=== PATIENT | female | born 1975 | race Caucasian/White ===

== ENCOUNTER 2016-10-08 13:07 | Emergency (ER) | payer MEDICAID ==
[~2016-10-08] VITALS: Ht 157.5 cm; Wt 62.0 kg
[~2016-10-08 13:07] MED LIST: CALC600T11 PO; FERR240T9 PO; PREN-39 PO
[2016-10-08 13:10] VITALS: Ht 157.5 cm; Wt 62.0 kg
[2016-10-08] MEDS ORDERED: ACETAMINOPHEN 500 MG TAB PO STA (13:44)
[2016-10-08 14:31] LABS: ADD SCAN DIFF NO
[2016-10-08 14:33] LABS: BASOPHILS % 0.4 % (0.0-2.0); EOSINOPHILS # 0.2 10^3/ul (0.0-0.5); EOSINOPHILS % 3.1 % (0.0-7.0); HEMATOCRIT 37.6 % (37.0-47.0); HEMOGLOBIN 12.8 g/dl (12.0-16.0); LYMPHOCYTES # 1.8 10^3/ul (0.8-2.9); LYMPHOCYTES % 27.6 % (15.0-51.0); MEAN CORPUSCULAR VOLUME 88.3 fl (82.0-101.0); MEAN PLATELET VOLUME 10.8 fl (7.4-10.4); MONOCYTE # 0.4 10^3/ul (0.3-0.9); MONOCYTES % 5.7 % (0.0-11.0); NEUTROPHIL # 4.2 10^3/ul (1.6-7.5); NEUTROPHILS % 63.1 % (39.0-77.0); PLATELET COUNT 198 10^3/UL (140-415); RED BLOOD COUNT 4.26 10^6/ul (4.20-5.40); RED CELL DISTRIBUTION WIDTH 12.4 % (11.5-14.5); WHITE BLOOD COUNT 6.7 10^3/ul (4.8-10.8)
[2016-10-08 14:41] LABS: ADD UMIC NO; UR ASCORBIC ACID NEGATIVE (NEGATIVE); UR BILIRUBIN (Dip) NEGATIVE (NEGATIVE); UR BLOOD (Dip) NEGATIVE (NEGATIVE); UR CLARITY CLEAR (CLEAR); UR COLOR YELLOW (YELLOW); UR GLUCOSE (Dip) NEGATIVE (NEGATIVE); UR KETONES (Dip) NEGATIVE (NEGATIVE); UR LEUKOCYTE ESTERASE (Dip) NEGATIVE Leu/ul (NEGATIVE); UR NITRITE (Dip) NEGATIVE (NEGATIVE); UR SPECIFIC GRAVITY (Dip) 1.023 (1.003-1.030); UR TOTAL PROTEIN (Dip) NEGATIVE (NEGATIVE); UR UROBILINOGEN (Dip) NEGATIVE (NEGATIVE)
--- NOTE | 2016-10-08 15:17 | RADRPT ---
PROCEDURE: US OB. CLINICAL INDICATION: Vaginal bleeding in . TECHNIQUE: Transabdominal and endovaginal imaging of the uterus is available for review COMPARISON: None available FINDINGS: There is a single intrauterine with a mean sac diameter of 0.8 cm, giving an estimated ges tational age of 5 weeks 3 days by ultrasound criteria. No pole real plaque is detected. A la rge subchorionic hemorrhage is identified. The ovaries demonstrate a right ovarian corpus luteum cys t. IMPRESSION: 1. Single intrauterine with an estimated gestational age of 5 weeks 3 days by ultrasound criteria. No pole is identified. This may be secondary to early dates. Repeat pelvic ultraso und is recommended in 1 week. 2. Large subchorionic hemorrhage. RPTAT: HH .Mira Whitman MD, Date Time Electronically viewed and signed by .Mira Whitman MD, on 10/08/2016 15:17 .G/
--- NOTE | 2016-10-08 15:35 | ERD ---
ER Documentation Chief Complaint Date/Time DATE: 10/08/16 TIME: 15:28 Chief Complaint VAG BLEED X 3 DAYS , POSTIVE PREG TEST @ HOME , LMP 09/07/16 HPI This is a 40-year-old female who presents the emergency department today complaining of abdominal pain for the past week. States that 3 days ago she started having some vaginal spotting. States that she took a test today that was positive. States her last menstrual period was September 07, 2016. States that she has used the "shot 'for contraception. States that she does not want this because she "almost " with her last baby 3 years ago because she had preeclampsia. Denies any fevers or chills, diarrhea, vomiting, dysuria states she has not taken any medication for the pain ROS All systems reviewed and are negative except as per history of present illness. Medications Home Meds Active Scripts Acetaminophen* (Tylophen*) 500 Mg Capsule, 1 CAP PO Q6H Y for PAIN AND OR ELEVATED TEMP, #30 CAP Prov:GINNA MANCIA PA-C 10/08/16 Reported Medications Calcium Carbonate* (Calcium Carbonate*) 600 MG Ca Tab, 600 MG PO DAILY, TAB 10/10/13 Ferrous Gluconate (Iron) 1 Tab Tablet, 1 TAB PO DAILY 10/10/13 Vits W-Ca,Fe,Fa(<1MG) ( Vitamins) 1 Tab Tablet, 1 TAB PO DAILY 10/10/13 Allergies Allergies: Coded Allergies: No Known Allergy (Unverified , 10/10/13) PMhx/Soc History of Surgery: No Anesthesia Reaction: No Hx Neurological Disorder: No Hx Respiratory Disorders: No Hx Cardiac Disorders: No Hx Psychiatric Problems: No Hx Miscellaneous Medical Probl: No Hx Alcohol Use: No Hx Substance Use: No Hx Tobacco Use: No Physical Exam Vitals Vital Signs Date Time Temp Pulse Resp B/P Pulse Ox O2 Delivery O2 Flow Rate FiO2 10/08/16 13:10 97.9 88 18 146/88 99 Physical Exam Const: Mild distress Head: Atraumatic Eyes: Normal Conjunctiva ENT: Normal External Ears, Nose and Mouth. Neck: Full range of motion..~ No meningismus. Resp: Clear to auscultation bilaterally Cardio: Regular rate and rhythm, no murmurs Abd: Soft, periumbilical tenderness non distended. Normal bowel sounds Skin: No petechiae or rashes Back: No midline or flank tenderness Ext: No cyanosis, or edema Neur: Awake and alert Psych: Normal Mood and Affect Result Diagram: 10/08/16 1425 Results 24 hrs Laboratory Tests Test 10/08/16 14:23 10/08/16 14:25 Urine Color YELLOW Urine Clarity CLEAR Urine pH 5.0 Urine Specific [place] 1.023 Urine Ketones NEGATIVEmg/dL Urine Nitrite NEGATIVEmg/dL Urine Bilirubin NEGATIVEmg/dL Urine Urobilinogen NEGATIVEmg/dL Urine Leukocyte Esterase NEGATIVELeu/ul Urine Hemoglobin NEGATIVEmg/dL Urine Glucose NEGATIVEmg/dL Urine Total Protein NEGATIVEmg/dl White Blood Count 6.710^3/ul Red Blood Count 4.2610^6/ul Hemoglobin 12.8g/dl Hematocrit 37.6% Mean Corpuscular Volume 88.3fl Mean Corpuscular Hemoglobin 30.0pg Mean Corpuscular Hemoglobin Concent 34.0g/dl Red Cell Distribution Width 12.4% Platelet Count 55094^3/UL Mean Platelet Volume 10.8fl Neutrophils % 63.1% Lymphocytes % 27.6% Monocytes % 5.7% Eosinophils % 3.1% Basophils % 0.4% Nucleated Red Blood Cells % 0.0/100WBC Neutrophils # 4.210^3/ul Lymphocytes # 1.810^3/ul Monocytes # 0.410^3/ul Eosinophils # 0.210^3/ul Basophils # 0.010^3/ul Nucleated Red Blood Cells # 0.010^3/ul Beta HCG, Quantitative 7810.6mIU/ml Current Medications Medications (Trade) Dose Ordered Sig/Katelynn Route PRN Reason Start Time Stop Time Status Last Admin Dose Admin Acetaminophen (Tylenol Tab) 500 mg ONCE STAT PO 10/08/16 13:44 10/08/16 13:45 DC 10/08/16 14:05 DIAGNOSTIC IMAGING REPORT Patient: ZACHARY DELGADO : 1975 Age: 40 Sex: F MR #: [id number] DOS: 10/08/16 1413 Ordering MD: GINNA MANCIA PA-C Location: [facility] Room/Bed: PROCEDURE: US OB. CLINICAL INDICATION: Vaginal bleeding in . TECHNIQUE: Transabdominal and endovaginal imaging of the uterus is available for review COMPARISON: None available FINDINGS: There is a single intrauterine with a mean sac diameter of 0.8 cm, giving an estimated gestational age of 5 weeks 3 days by ultrasound criteria. No pole real plaque is detected. A large subchorionic hemorrhage is identified. The ovaries demonstrate a right ovarian corpus luteum cyst. IMPRESSION: 1. Single intrauterine with an estimated gestational age of 5 weeks 3 days by ultrasound criteria. No pole is identified. This may be secondary to early dates. Repeat pelvic ultrasound is recommended in 1 week. 2. Large subchorionic hemorrhage. RPTAT: HH .Mira Whitman MD, MD Date Time Electronically viewed and signed by .Mira Whitman MD, MD on 10/08/2016 15 :17 .G/ CC: GINNA MANCIA PA-C Procedures/MDM This is a 32-year-old female who presents the emergency department today complaining of abdominal pain for the past week and some vaginal spotting that started 3 days ago. States that she had a positive presence test today. Given this I did repeat our test here in the emergency department Urine test is positive. Given this I did obtain a complete OB workup. This is a 40-year-old female who presents to the emergency department today complaining of abdominal pain and some vaginal spotting given this I did obtain a complete OB workup. Laboratory work shows no elevated white blood cell count. She is not anemic. Platelets are within normal limits. UA is negative for infection Beta quant hCG 7810.6 Rh status O+ Ultrasound shows a single intrauterine with an estimated gestational age of 5 weeks and 3 days by ultrasound criteria. There is no pole identified. This may be secondary to early dates. Recommended pelvic ultrasound in 1 week. There is a right ovarian corpus luteal cyst. There is a large subchorionic hemorrhage identified. Patient symptoms at this time is consistent with vaginal bleeding in early . Other differentials to consider early normal versus early failed versus placenta previa versus subchorionic hemorrhage. Patient is afebrile and otherwise well-appearing. I have low suspicion for ectopic , tubo ovarian abscess, ovarian torsion. Patient was given Tylenol here in the emergency department. She reported feeling better. She is given a per scription for Tylenol for home. I have explained the results to the patient. I have explained to the patient that they need to follow-up in 48 hours for a repeat beta quant and repeat ultrasound in 1 week given there is no evidence of pole or yolk sac on ultrasound. I have explained all results to the patient. I did explain to the patient that there is no one here at the hospital that would do an elective at this time as patient indicated she does not want this . I have explained her that she can follow-up with her [facility] or [facility]. She is given a list of resources. At this time the patient is stable for discharge and outpatient management. Patient should follow up with their PCP in the next 1-2 days. They may return to the emergency department sooner for any persistent or worsening of symptoms. Patient understood and agreed with the plan. Discussed the patient with Dr. Shine and he is in agreement with the plan Departure Diagnosis: Primary Impression: Vaginal bleeding in patient at less than 20 weeks gestation Condition: GINNA Ervin PA-C Oct 08, 2016 15:34
[2016-10-08] MEDS ORDERED: ACET500C5 PO (16:00)
== END 2016-10-08 16:15 | disposition home or self-care (01) ==
LOC: FTE 13:07
DX: O20.9 Hemorrhage in early pregnancy, unspecified (principal); Z3A.01 Less than 8 weeks gestation of pregnancy
CPT/HCPCS: 36415; 76801; 76817; 81003; 84702; 85025; 86900; 86901; 87591; Z7502; Z7610

== ENCOUNTER 2017-05-08 12:59 | Emergency (ER) | END 2017-05-08 18:09 | disposition home or self-care (01) ==